=== PATIENT | male | born 1955 | race Caucasian/White ===

== ENCOUNTER 2020-03-31 06:27 | Day surgery (SDC) | payer MEDICARE ==
[2020-03-29 15:20] VITALS: BMI 32.1
[~2020-03-31 06:27] MED LIST: ACETAMINOPHEN TAB 500 MG TAB PO PRN; DEXAMETHASONE SOD PHOSPHATE 4 MG/ML 1 ML VIAL IV ONE; HEPARIN SODIUM,PORCINE 5,000 UNIT/ML 1 ML VIAL SQ PRN; HYDROmorphone 0.5 MG/0.5 ML SYRINGE IVP PRN; LACTATED RINGERS 1,000 ML IV SCH; LIDOCAINE 1% (10MG/ML) FOR IV START INTRADERMA PRN; MIDAZOLAM 2 MG/2 ML VIAL IV PRN; Pre Op ABX Message 1 EACH MISC MISCELLANE ONE
[2020-03-31 06:50] VITALS: RESP 16; TEMP 98.4
[2020-03-31] MEDS ORDERED: ONDANSETRON 4 MG/2 ML VIAL ONE (06:52)
[2020-03-31] MEDS ORDERED: fentaNYL (PF) 50 MCG/ML 2 ML AMP ONE (07:58)
[2020-03-31] MEDS ORDERED: PROPOFOL 10 MG/ML 20 ML VIAL IV ONE (07:58)
[2020-03-31] MEDS ORDERED: MIDAZOLAM 2 MG/2 ML VIAL ONE (07:58)
[2020-03-31] MEDS ORDERED: SODIUM CHLORIDE 0.9% 50 ML with ceFAZolin 2,000 MG IV ONE ×2 (08:02)
--- NOTE | 2020-03-31 08:11 | P.GSHP ---
History of Present Illness H&P Date: 03/31/20 Past Medical History Past Medical History: Asthma, Cancer, GERD/Reflux, Hyperlipidemia, Hypertension, Osteoarthritis (OA), Skin Disorder Additional Past Medical History / Comment(s): eczema, melanoma, History of Any Multi-Drug Resistant Organisms: None Reported Additional Past Surgical History / Comment(s): brain surgery for subdural hematoma, EGD with dilation Past Anesthesia/Blood Transfusion Reactions: No Reported Reaction Smoking Status: Never smoker - Past Family History Mother Family Medical History: No Reported History Medications and Allergies Home Medications Medication Instructions Recorded Confirmed Type Ezetimibe [Zetia] 10 mg PO DAILY 03/29/20 03/29/20 History Fosinopril [Monopril] 10 mg PO HS 03/29/20 03/29/20 History Mometasone/Formoterol [Dulera 200 1 puff PO QAM 03/29/20 03/29/20 History Mcg-5 Mcg Inhaler] Omeprazole [PriLOSEC] 20 mg PO HS 03/29/20 03/29/20 History amLODIPine [Norvasc] 10 mg PO QAM 03/29/20 03/29/20 History Allergies Allergy/AdvReac Type Severity Reaction Status Date / Time Sulfa (Sulfonamide Allergy Unknown Verified 03/31/20 06:40 Antibiotics) Childhood cat,dog Allergy Unknown Uncoded 03/31/20 06:40 Surgical - Exam Vital Signs Temp Pulse Resp BP Pulse Ox 98.4 F 100 16 182/85 94 L 03/31/20 06:49 03/31/20 06:49 03/31/20 06:49 03/31/20 06:49 03/31/20 06:49 - General well developed, well nourished, no distress - Eyes PERRL - ENT normal pinna - Neck no masses - Respiratory normal expansion - Cardiovascular Rhythm: regular - Abdomen Abdomen: soft, non tender - Integumentary Patient has a 2 cm melanoma operative site on the right shoulder at The base the neck Assessment and Plan Assessment: Melanoma right shoulder. We'll perform wide local excision
[2020-03-31] MEDS ORDERED: BUPIVACAINE (PF) 0.25% 30 ML VIAL SQ ONE (08:19)
--- NOTE | 2020-03-31 08:41 | P.OP ---
Date of Procedure: 03/31/20 Preoperative Diagnosis: Melanoma right shoulder Postoperative Diagnosis: Melanoma right shoulder Procedure(s) Performed: Wide local excision melanoma Anesthesia: MAC Surgeon: Nawaf Padilla Estimated Blood Loss (ml): 5 Pathology: other (Melanoma right shoulder) Condition: stable Disposition: PACU Description of Procedure: The patient's placed on the operating table in the supine position. She received IV sedation. The melanoma site was injected 1% local Xylocaine. Elliptical skin incision was made around the melanoma. The lesion measured prostate 3 x 2 cm. The Bovie using scissors. The skin was closed interrupted 3-0 Monocryl suture. Dermabond dressings was applied. Patient top she will was sent to recovery in stable condition. The specimen was tagged with a suture on the superior edge of the incision.
[2020-03-31 08:52] VITALS: BP 143/78; PULSE 69
== END 2020-03-31 09:09 ==
LOC: OR 06:27
PROVIDERS: ATTEND Surgery
DX: C43.61 Malignant melanoma of right upper limb, including shoulder (principal); I10 Essential (primary) hypertension; J45.909 Unspecified asthma, uncomplicated; K21.9 Gastro-esophageal reflux disease without esophagitis; E78.5 Hyperlipidemia, unspecified; M19.90 Unspecified osteoarthritis, unspecified site; Z98.890 Other specified postprocedural states; Z79.51 Long term (current) use of inhaled steroids; Z79.899 Other long term (current) drug therapy; Z88.2 Allergy status to sulfonamides; Z91.09 Other allergy status, other than to drugs and biological substances
CPT/HCPCS: 88305; 11603; J2250; J1644; J1100; J2405; J0690; J3010; J2704